=== PATIENT | male | born 1960 | race Caucasian/White ===

== ENCOUNTER 2022-06-07 08:31 | Outpatient (CLI) | payer BC, SELFPAY ==
--- NOTE | 2022-06-07 09:15 | MR_ITS ---
[address] [address] Phone:?[phone] Fax:?[phone] Referring Physician Information: Chapis Valencia [address] [facility] [address] Phone:?[phone] Fax:?[phone] Patient:Jovita Caraballo D.O.B:?1960 Sex:?Male Phone:?[phone] [facility] MRN:?[id number] Exam Date:?06/07/2022 ? EXAM: MRI RIGHT THUMB CLINICAL INFORMATION: The patient is a 61-year-old with right thumb pain. Evaluate for foreign body within the soft tissues of the right thumb. TECHNICAL INFORMATION: Imaging was performed on a high-field, 1.5 Geovanna MR scanner. Axial proton-density, T2, and fat-suppressed proton-density imaging of the right thumb was performed in addition to coronal proton-density, T2, T1, and STIR imaging. Sagittal proton-density and T2 imaging was also produced. Comparison is made to prior radiographs dated 05/22/2022. INTERPRETATION: There is thickening of the soft tissues involving the distal portion of the right thumb along its volar aspect, noted to best advantage on axial series 4 image 6 and on sagittal series 8 image 12. Soft tissue edema, hemorrhage, or inflammatory changes thought to be present with areas of suspected fibrosis along the distal aspect on sagittal series 8 image 32. No definite evidence for well-defined foreign bodies within the soft tissues can be seen. No other definite soft tissue abnormalities about the thumb are noted. No well-defined areas of abnormal fluid collection are noted. No definite evidence for acute bony abnormality of the thumb is identified. There is no definite evidence for fracture or destructive bony lesion. No definite abnormalities of the first CMC, first IP, or first MCP joints can be seen. No definite evidence for injury to the flexor or extensor tendons of the thumb can be seen. No abnormalities of the thenar musculature are present. No definite neurovascular abnormalities are present. CONCLUSION: 1. No definite evidence for well-defined foreign bodies can be seen within the soft tissues about the right thumb, however soft tissue swelling along the palmar aspect of the first distal phalanx is noted. No well-defined areas of abnormal fluid collection or soft tissue mass can be seen. 2. No definite bony injuries are identified. 3. No articular injuries are seen. 4. No musculotendinous injuries are noted. [facility] Electronically signed on 06/07/2022 12:14:00 PM by Dae Montgomery M.D.
== END 2022-06-07 08:32 | disposition home or self-care (01) ==
LOC: MRI 08:32
PROVIDERS: PCP Nurse Practitioner Family; Visit Provider Physician Assistant Surgical
DX: M79.644 Pain in right finger(s) (principal); L08.9 Local infection of the skin and subcutaneous tissue, unspecified
CPT/HCPCS: 73218